=== PATIENT | female | born 1950 | race Caucasian/White ===

== ENCOUNTER 2021-09-23 23:23 | Inpatient (IN) ==
[2021-09-24] MEDS ORDERED: 0.9 % Sodium Chloride 1,000 ML IVC ONE (00:13)
[2021-09-24] MEDS ORDERED: Acetaminophen IV 1,000 MG/100 ML BAG IVPB ONE (00:19)
[2021-09-24] MEDS ORDERED: cefTRIAXone 2,000 MG in 0.9 % Sodium Chloride Mini Bag 100 ML IVPB ONE (00:20)
[2021-09-24 00:25] LABS: Basophils % 0.2 %; Eosinophils # 0.4 K/mcL (0.0-0.6); Eosinophils % 2.5 %; Hematocrit 35.3 % (35.3-44.9); Hemoglobin 10.9 g/dL (11.5-15.4); Immature Granulocytes % 0.4 % (0-4); Lymphocytes # 1.5 K/mcL (0.6-4.6); Lymphocytes % 8.5 %; Mean Corpuscular HGB Conc 30.9 g/dL (31.6-35.5); Mean Corpuscular Hemoglobin 25.1 pg (28.0-33.3); Mean Corpuscular Volume 81.3 fL (83.0-100.0); Mean Platelet Volume 9.9 fL (9.4-12.4); Monocytes # 0.8 K/mcL (0.0-1.3); Monocytes % 4.7 %; Neutrophils # 14.3 K/mcL (1.6-8.9); Platelet Count 407 K/mcL (140-400); Red Blood Count 4.34 M/mcL (3.82-4.97); Red Cell Distribution Width 21.8 % (11.5-14.5); Segmented Neutrophils % 83.7 %; White Blood Count 17.1 K/mcL (4.3-11.1)
[2021-09-24 00:32] LABS: INR 1.1; Prothrombin Time 12.1 Seconds (9.4-12.1)
[2021-09-24 00:35] LABS: Activated Partial Thrombo Time 36.3 Seconds (26.0-36.0)
[2021-09-24 00:35] LABS: Bilirubin,Urine Negative (Negative); Blood,Urine Negative (Negative); Clarity,Urine Clear (Clear); Color,Urine Light-Yellow (Yellow); Glucose,Urine (UA) Normal (Normal); Ketones,Urine Negative (Negative); Leukocyte Esterase,Urine Moderate (Negative); Nitrite,Urine Negative (Negative); PH,Urine 6.5 pH Units (5.0-8.0); Protein,Urine Trace mg/dL (Neg-Trace); RBC,Urine 0-3 per hpf (0-3); Squamous Epithelial Cell,Urine Few per hpf (None-Few); Transitional Epi Cells,Urine Few per hpf (None-Few); Urobilinogen,Urine Normal (Normal); WBC,Urine 30-50 per hpf (0-3)
[2021-09-24] MEDS ORDERED: Azithromycin 500 MG in 0.9 % Sodium Chloride 250 ML IVPB ONE (00:50)
[2021-09-24 00:51] LABS: Alanine Aminotransferase 10 Units/L (7-52); Albumin/Globulin Ratio 1.1 (1.1-2.2); Alkaline Phosphatase 144 Units/L (34-104); Aspartate Amino Transferase 18 Units/L (13-39); BUN/Creatinine Ratio 13 (6-26); Bilirubin,Direct 0.1 mg/dL (0.0-0.2); Bilirubin,Indirect 0.2 mg/dL (0.0-1.0); Bilirubin,Total 0.3 mg/dL (0.3-1.0); Blood Urea Nitrogen 12 mg/dL (8-23); Calcium 9.7 mg/dL (8.6-10.3); Carbon Dioxide 18 mEq/L (23-29); Chloride 102 mEq/L (98-107); Globulin 3.8 g/dL (2.4-3.5); Glucose 155 mg/dL (70-105); Magnesium 1.5 mg/dL (1.6-2.6); Osmolality,Calculated 287 (280-300); Potassium 3.9 mEq/L (3.5-5.1); Sodium 137 mEq/L (136-145); Total Protein 7.8 g/dL (6.4-8.9); Troponin I < 0.03 ng/mL (< 0.04); eGFR For African Americans > 60 (> 60); eGFR For Non-African Americans 58 (> 60)
[2021-09-24] MEDS ORDERED: Albuterol 2.5 MG/3 ML NEBULIZER IH ONE (00:51)
[2021-09-24] MEDS ORDERED: Ondansetron 4 MG/2 ML VIAL IVP ONE (01:40)
[2021-09-24] MEDS ORDERED: 0.9 % Sodium Chloride 1,000 ML IV ONE (01:41)
[2021-09-24 02:44] LABS: Adenovirus Not Detected (Not Detect); Bordetella Pertussis Not Detected (Not Detect); Chlamydophila pneumoniae Not Detected (Not Detect); Coronavirus 229E Not Detected (Not Detect); Coronavirus HKU1 Not Detected (Not Detect); Coronavirus NL63 Not Detected (Not Detect); Coronavirus OC43 Not Detected (Not Detect); Human Metapneumovirus Not Detected (Not Detect); Human Rhinovirus/Enterovirus Not Detected (Not Detect); Influenza A Subtype 2009 H1 Not Detected (Not Detect); Influenza B Not Detected (Not Detect); Mycoplasma pneumoniae Not Detected (Not Detect); Parainfluenza Virus 1 Not Detected (Not Detect); Parainfluenza Virus 2 Not Detected (Not Detect); Parainfluenza Virus 3 Not Detected (Not Detect); Parainfluenza Virus 4 Not Detected (Not Detect); Respiratory Syncytial Virus Not Detected (Not Detect); SARS-CoV-2 Not Detected (Not Detect)
[2021-09-24] MEDS: Ketorolac 30 MG/ML VIAL IVP SCH ×2 (02:55→10:05)
[2021-09-24] MEDS ORDERED: 0.9 % Sodium Chloride 500 ML IV ONE (03:17)
[2021-09-24] MEDS ORDERED: Iopamidol - 370 500 ML MLS IVP ONE (03:19)
[2021-09-24] MEDS ORDERED: Melatonin 3 MG TABLET PO PRN (05:08)
[2021-09-24] MEDS ORDERED: Naloxone 0.4 MG/ML INJ IVP PRN (05:08)
[2021-09-24] MEDS ORDERED: Ondansetron 4 MG/2 ML VIAL IVP PRN (05:08)
[2021-09-24] MEDS ORDERED: Dextrose Gel 15 GM/37.5 ML TUBE PO PRN ×2 (06:10)
[2021-09-24] MEDS ORDERED: *HR* Dextrose 50 % in Water (Syg) 50 ML SYRINGE IVP PRN (06:10)
[2021-09-24] MEDS ORDERED: D5% in Water 1,000 ML IVC PRN (06:10)
[2021-09-24] MEDS: 0.9 % Sodium Chloride 1,000 ML IVC SCH ×2 (06:27→14:34)
[2021-09-24] MEDS: Insulin LISPRO 300 UNITS/3 ML VIAL SUBQ SCH ×4 (07:33→20:19)
[2021-09-24] MEDS: Acetaminophen 325 MG TABLET PO PRN ×2 (10:04→20:33)
[2021-09-24] MEDS ORDERED: Perflutren Lipid Microsphere 1.3 ML in 0.9 % Sodium Chloride 8.7 ML IVP PRN (11:16)
[2021-09-24] MEDS: *HR* Heparin 5,000 UNIT/ML VIAL SQ SCH ×2 (14:42→20:24)
[2021-09-24] MEDS ORDERED: *HR* HYDROcodone/Acet 5/325 mg TABLET PO PRN (15:33)
[2021-09-24] MEDS: clonazePAM 0.5 MG TABLET PO SCH (20:26)
[2021-09-24] MEDS ORDERED: cefTRIAXone 2,000 MG in 0.9 % Sodium Chloride 10 ML IVP ONE (23:59)
[2021-09-25] MEDS: cefTRIAXone 2,000 MG in 0.9 % Sodium Chloride 20 ML IVP SCH (00:11)
[2021-09-25] MEDS: Azithromycin 500 MG in D5% in Water 250 ML IVPB SCH (00:12)
[2021-09-25] MEDS ORDERED: cefTRIAXone 2,000 MG in 0.9 % Sodium Chloride 10 ML IVP SCH (02:00)
[2021-09-25 03:16] LABS: Basophils % 0.2 %; Eosinophils # 0.6 K/mcL (0.0-0.6); Eosinophils % 3.9 %; Immature Granulocytes % 0.5 % (0-4); Lymphocytes # 1.7 K/mcL (0.6-4.6); Lymphocytes % 11.1 %; Mean Corpuscular HGB Conc 29.6 g/dL (31.6-35.5); Mean Corpuscular Hemoglobin 25.2 pg (28.0-33.3); Mean Corpuscular Volume 84.9 fL (83.0-100.0); Mean Platelet Volume 10.4 fL (9.4-12.4); Monocytes # 0.8 K/mcL (0.0-1.3); Monocytes % 5.3 %; Neutrophils # 11.8 K/mcL (1.6-8.9); Platelet Count 266 K/mcL (140-400); Red Blood Count 3.18 M/mcL (3.82-4.97); Red Cell Distribution Width 22.1 % (11.5-14.5)
[2021-09-25 03:35] LABS: BUN/Creatinine Ratio 17 (6-26); Blood Urea Nitrogen 14 mg/dL (8-23); Calcium 8.7 mg/dL (8.6-10.3); Carbon Dioxide 23 mEq/L (23-29); Chloride 108 mEq/L (98-107); Glucose 106 mg/dL (70-105); Osmolality,Calculated 285 (280-300); Potassium 4.2 mEq/L (3.5-5.1); Sodium 137 mEq/L (136-145); eGFR For African Americans > 60 (> 60); eGFR For Non-African Americans > 60 (> 60)
[2021-09-25] MEDS: *HR* Heparin 5,000 UNIT/ML VIAL SQ SCH ×3 (04:47→19:54)
[2021-09-25] MEDS: Insulin LISPRO 300 UNITS/3 ML VIAL SUBQ SCH ×4 (07:44→19:49)
[2021-09-25] MEDS: Aspirin Enteric Coated 81 MG Tablet PO SCH (07:49)
[2021-09-25] MEDS: clonazePAM 0.5 MG TABLET PO SCH ×2 (07:49→19:54)
[2021-09-25] MEDS ORDERED: Lidocaine Viscous Oral Soln 15 ML SOLUTION MM PRN (10:45)
[2021-09-25] MEDS ORDERED: *HR* FentaNYL (PF) 100 MCG/2 ML VIAL IVP PRN (10:45)
[2021-09-25] MEDS ORDERED: 0.9 % Sodium Chloride 500 ML IVC ONE (10:46)
[2021-09-25] MEDS: *HR* Midazolam HCl 5 MG/5 ML VIAL IVP PRN ×2 (11:18→11:20)
[2021-09-25] MEDS ORDERED: Furosemide 20 MG/2 ML VIAL IVP ONE ×2 (14:33→16:44)
[2021-09-25] MEDS: Ipratropium/Albuterol Neb 3 ML IH PRN (17:50)
[2021-09-26] MEDS: *HR* HYDROcodone/Acet 5/325 mg TABLET PO PRN ×2 (00:20→23:29)
[2021-09-26] MEDS: Azithromycin 500 MG in D5% in Water 250 ML IVPB SCH (00:21)
[2021-09-26] MEDS: cefTRIAXone 2,000 MG in 0.9 % Sodium Chloride 20 ML IVP SCH ×2 (00:22→23:30)
[2021-09-26 02:27] LABS: Basophils % 0.3 %; Eosinophils # 0.3 K/mcL (0.0-0.6); Hematocrit 25.8 % (35.3-44.9); Hemoglobin 7.9 g/dL (11.5-15.4); Immature Granulocytes % 0.4 % (0-4); Lymphocytes # 1.8 K/mcL (0.6-4.6); Lymphocytes % 18.2 %; Mean Corpuscular HGB Conc 30.6 g/dL (31.6-35.5); Mean Corpuscular Hemoglobin 25.1 pg (28.0-33.3); Mean Corpuscular Volume 81.9 fL (83.0-100.0); Mean Platelet Volume 10.6 fL (9.4-12.4); Monocytes # 0.7 K/mcL (0.0-1.3); Monocytes % 6.7 %; Platelet Count 281 K/mcL (140-400); Red Blood Count 3.15 M/mcL (3.82-4.97); Red Cell Distribution Width 22.5 % (11.5-14.5); Segmented Neutrophils % 71.4 %; White Blood Count 9.8 K/mcL (4.3-11.1)
[2021-09-26 02:49] LABS: Alanine Aminotransferase 6 Units/L (7-52); Albumin 3.2 g/dL (3.5-5.7); Alkaline Phosphatase 120 Units/L (34-104); Aspartate Amino Transferase 12 Units/L (13-39); BUN/Creatinine Ratio 17 (6-26); Bilirubin,Total 0.4 mg/dL (0.3-1.0); Blood Urea Nitrogen 13 mg/dL (8-23); Calcium 8.7 mg/dL (8.6-10.3); Carbon Dioxide 26 mEq/L (23-29); Chloride 99 mEq/L (98-107); Globulin 3.3 g/dL (2.4-3.5); Glucose 159 mg/dL (70-105); Osmolality,Calculated 281 (280-300); Potassium 3.3 mEq/L (3.5-5.1); Sodium 134 mEq/L (136-145); Total Protein 6.5 g/dL (6.4-8.9); eGFR For African Americans > 60 (> 60); eGFR For Non-African Americans > 60 (> 60)
[2021-09-26] MEDS: *HR* Heparin 5,000 UNIT/ML VIAL SQ SCH ×3 (05:39→20:40)
[2021-09-26] MEDS: Insulin LISPRO 300 UNITS/3 ML VIAL SUBQ SCH ×4 (07:29→20:35)
[2021-09-26] MEDS: clonazePAM 0.5 MG TABLET PO SCH ×2 (07:43→20:40)
[2021-09-26] MEDS: Aspirin Enteric Coated 81 MG Tablet PO SCH (07:43)
[2021-09-26] MEDS ORDERED: Furosemide 40 MG/4 ML VIAL IVP SCH (09:00)
[2021-09-26] MEDS: Ipratropium/Albuterol Neb 3 ML IH PRN ×2 (16:06→23:51)
[2021-09-27] MEDS: *HR* Heparin 5,000 UNIT/ML VIAL SQ SCH ×3 (05:28→21:04)
[2021-09-27 05:32] LABS: Hematocrit 27.7 % (35.3-44.9); Hemoglobin 8.5 g/dL (11.5-15.4); Mean Corpuscular HGB Conc 30.7 g/dL (31.6-35.5); Mean Corpuscular Hemoglobin 25.1 pg (28.0-33.3); Mean Platelet Volume 10.4 fL (9.4-12.4); Platelet Count 313 K/mcL (140-400); Red Blood Count 3.38 M/mcL (3.82-4.97); Red Cell Distribution Width 21.8 % (11.5-14.5); White Blood Count 8.4 K/mcL (4.3-11.1)
[2021-09-27 05:56] LABS: BUN/Creatinine Ratio 14 (6-26); Blood Urea Nitrogen 11 mg/dL (8-23); Calcium 9.2 mg/dL (8.6-10.3); Carbon Dioxide 28 mEq/L (23-29); Chloride 102 mEq/L (98-107); Glucose 126 mg/dL (70-105); Osmolality,Calculated 285 (280-300); Potassium 3.9 mEq/L (3.5-5.1); Sodium 137 mEq/L (136-145); eGFR For African Americans > 60 (> 60); eGFR For Non-African Americans > 60 (> 60)
[2021-09-27 06:12] LABS: Ferritin 49 ng/mL (10-120)
[2021-09-27] MEDS: Insulin LISPRO 300 UNITS/3 ML VIAL SUBQ SCH ×4 (07:34→22:38)
[2021-09-27] MEDS: Ipratropium/Albuterol Neb 3 ML IH PRN (07:56)
[2021-09-27] MEDS: clonazePAM 0.5 MG TABLET PO SCH ×2 (08:29→21:04)
[2021-09-27] MEDS: Azithromycin 250 MG TABLET PO SCH (08:29)
[2021-09-27] MEDS: Aspirin Enteric Coated 81 MG Tablet PO SCH (08:29)
[2021-09-27] MEDS: *HR* HYDROcodone/Acet 5/325 mg TABLET PO PRN (23:21)
[2021-09-28] MEDS: cefTRIAXone 2,000 MG in 0.9 % Sodium Chloride 20 ML IVP SCH (00:04)
[2021-09-28 01:57] LABS: Hematocrit 28.1 % (35.3-44.9); Hemoglobin 8.6 g/dL (11.5-15.4); Mean Corpuscular HGB Conc 30.6 g/dL (31.6-35.5); Mean Corpuscular Hemoglobin 25.1 pg (28.0-33.3); Mean Corpuscular Volume 82.2 fL (83.0-100.0); Mean Platelet Volume 9.9 fL (9.4-12.4); Platelet Count 313 K/mcL (140-400); Red Blood Count 3.42 M/mcL (3.82-4.97); Red Cell Distribution Width 21.7 % (11.5-14.5); White Blood Count 9.5 K/mcL (4.3-11.1)
[2021-09-28 02:04] LABS: INR 1.1; Prothrombin Time 12.4 Seconds (9.4-12.1)
[2021-09-28 02:12] LABS: BUN/Creatinine Ratio 14 (6-26); Blood Urea Nitrogen 10 mg/dL (8-23); Calcium 9.4 mg/dL (8.6-10.3); Carbon Dioxide 28 mEq/L (23-29); Chloride 101 mEq/L (98-107); Glucose 95 mg/dL (70-105); Osmolality,Calculated 285 (280-300); Sodium 138 mEq/L (136-145); eGFR For African Americans > 60 (> 60); eGFR For Non-African Americans > 60 (> 60)
[2021-09-28] MEDS: *HR* Heparin 5,000 UNIT/ML VIAL SQ SCH ×3 (04:30→21:24)
[2021-09-28] MEDS: Insulin LISPRO 300 UNITS/3 ML VIAL SUBQ SCH ×4 (07:37→23:52)
[2021-09-28] MEDS: Aspirin Enteric Coated 81 MG Tablet PO SCH (08:50)
[2021-09-28] MEDS: clonazePAM 0.5 MG TABLET PO SCH ×2 (08:50→21:25)
[2021-09-28] MEDS: Azithromycin 250 MG TABLET PO SCH (08:50)
[2021-09-28] MEDS ORDERED: Cyanocobalamin (B-12) 1,000 MCG/ML VIAL IM SCH (09:00)
[2021-09-28] MEDS ORDERED: *HR* FentaNYL (PF) 100 MCG/2 ML VIAL ONE (14:16)
[2021-09-28] MEDS ORDERED: Heparin 1,000 UNITS/500 mL 500 ML ONE (14:17)
[2021-09-28] MEDS ORDERED: *HR* Midazolam HCl 2 MG/2 ML VIAL ONE (14:17)
[2021-09-28] MEDS ORDERED: Iopamidol - 370 200 ML INFUS..BTL ONE (14:17)
[2021-09-28] MEDS ORDERED: *HR* Heparin 10,000 UNIT/10 ML VIAL ONE (14:17)
[2021-09-28] MEDS ORDERED: 0.9 % Sodium Chloride 2,000 ML ONE (14:18)
[2021-09-28] MEDS ORDERED: Nitroglycerin 1,000 MCG/5 ML VIAL IV ONE (14:18)
[2021-09-28 19:17] LABS: Basophils # 0.1 K/mcL (0.0-0.2); Basophils % 0.5 %; Eosinophils # 0.9 K/mcL (0.0-0.6); Eosinophils % 9.1 %; Hematocrit 29.5 % (35.3-44.9); INR 1.1; Immature Granulocytes % 0.9 % (0-4); Lymphocytes # 2.5 K/mcL (0.6-4.6); Lymphocytes % 25.2 %; Mean Corpuscular HGB Conc 30.5 g/dL (31.6-35.5); Mean Corpuscular Hemoglobin 25.4 pg (28.0-33.3); Mean Corpuscular Volume 83.1 fL (83.0-100.0); Mean Platelet Volume 9.8 fL (9.4-12.4); Monocytes # 0.8 K/mcL (0.0-1.3); Monocytes % 8.3 %; Neutrophils # 5.5 K/mcL (1.6-8.9); Platelet Count 347 K/mcL (140-400); Prothrombin Time 12.8 Seconds (9.4-12.1); Red Blood Count 3.55 M/mcL (3.82-4.97); Red Cell Distribution Width 21.2 % (11.5-14.5); White Blood Count 9.9 K/mcL (4.3-11.1)
[2021-09-28 19:22] LABS: Activated Partial Thrombo Time 60.5 Seconds (26.0-36.0)
[2021-09-28 19:38] LABS: BUN/Creatinine Ratio 13 (6-26); Blood Urea Nitrogen 9 mg/dL (8-23); Calcium 9.4 mg/dL (8.6-10.3); Carbon Dioxide 28 mEq/L (23-29); Chloride 102 mEq/L (98-107); Chol/HDL Ratio 4.3 (0-4.9); Cholesterol 124 mg/dL (< 200); Glucose 97 mg/dL (70-105); HDL Cholesterol 29 mg/dL (40-59); LDL Cholesterol,Calculated 59 mg/dL (< 100); Osmolality,Calculated 283 (280-300); Potassium 4.2 mEq/L (3.5-5.1); Sodium 137 mEq/L (136-145); Triglycerides 178 mg/dL (< 150); eGFR For African Americans > 60 (> 60); eGFR For Non-African Americans > 60 (> 60)
[2021-09-28 20:13] LABS: Estimated Average Glucose 137 mg/dl; Hemoglobin A1C 6.4 %
[2021-09-28] MEDS: Chlorhexidine Rinse 15 ML MOUTHWASH MM SCH (21:26)
[2021-09-29] MEDS: cefTRIAXone 2,000 MG in 0.9 % Sodium Chloride 20 ML IVP SCH (02:25)
[2021-09-29 02:33] LABS: ABG Base Excess 0 mEq/L (-2 to 3); ABG HCO3 23 mEq/L (21-27); ABG Oxygen Saturation 97 % (95-98); ABG PCO2 31 mmHg (35-45); ABG PH 7.48 pH Units (7.32-7.45); ABG PO2 78 mmHg (85-104); ABG TCO2 24 mEq/L (20-26)
[2021-09-29] MEDS ORDERED: Iopamidol - 370 500 ML MLS IVP ONE (02:34)
[2021-09-29 03:07] LABS: Basophils % 0.4 %; Eosinophils # 0.9 K/mcL (0.0-0.6); Hematocrit 25.8 % (35.3-44.9); Immature Granulocytes % 1.1 % (0-4); Lymphocytes # 2.3 K/mcL (0.6-4.6); Lymphocytes % 23.6 %; Mean Corpuscular Hemoglobin 25.7 pg (28.0-33.3); Mean Platelet Volume 10.2 fL (9.4-12.4); Monocytes # 1.1 K/mcL (0.0-1.3); Monocytes % 11.1 %; Neutrophils # 5.2 K/mcL (1.6-8.9); Platelet Count 322 K/mcL (140-400); Red Blood Count 3.11 M/mcL (3.82-4.97); Red Cell Distribution Width 21.5 % (11.5-14.5); Segmented Neutrophils % 54.8 %; White Blood Count 9.5 K/mcL (4.3-11.1)
[2021-09-29 03:14] LABS: INR 1.2; Prothrombin Time 13.3 Seconds (9.4-12.1)
[2021-09-29 03:30] LABS: Alanine Aminotransferase 7 Units/L (7-52); Albumin 3.1 g/dL (3.5-5.7); Alkaline Phosphatase 129 Units/L (34-104); Aspartate Amino Transferase 12 Units/L (13-39); BUN/Creatinine Ratio 14 (6-26); Bilirubin,Direct 0.1 mg/dL (0.0-0.2); Bilirubin,Indirect 0.2 mg/dL (0.0-1.0); Bilirubin,Total 0.3 mg/dL (0.3-1.0); Blood Urea Nitrogen 10 mg/dL (8-23); Calcium 8.9 mg/dL (8.6-10.3); Carbon Dioxide 26 mEq/L (23-29); Chloride 100 mEq/L (98-107); Globulin 3.2 g/dL (2.4-3.5); Glucose 125 mg/dL (70-105); Magnesium 1.7 mg/dL (1.6-2.6); Osmolality,Calculated 279 (280-300); Phosphorous 4.2 mg/dL (2.7-4.5); Potassium 3.9 mEq/L (3.5-5.1); Sodium 134 mEq/L (136-145); Total Protein 6.3 g/dL (6.4-8.9); eGFR For African Americans > 60 (> 60); eGFR For Non-African Americans > 60 (> 60)
[2021-09-29 05:17] LABS: Folate 16.7 ng/mL (3.0-16.0)
[2021-09-29 05:38] LABS: Alanine Aminotransferase 7 Units/L (7-52); Albumin 3.2 g/dL (3.5-5.7); Albumin/Globulin Ratio 0.9 (1.1-2.2); Alkaline Phosphatase 139 Units/L (34-104); Aspartate Amino Transferase 14 Units/L (13-39); BUN/Creatinine Ratio 13 (6-26); Bilirubin,Total 0.2 mg/dL (0.3-1.0); Blood Urea Nitrogen 10 mg/dL (8-23); Calcium 9.3 mg/dL (8.6-10.3); Carbon Dioxide 25 mEq/L (23-29); Chloride 101 mEq/L (98-107); Chol/HDL Ratio 4.8 (0-4.9); Cholesterol 114 mg/dL (< 200); Globulin 3.6 g/dL (2.4-3.5); Glucose 118 mg/dL (70-105); HDL Cholesterol 24 mg/dL (40-59); LDL Cholesterol,Calculated 53 mg/dL (< 100); LDL Cholesterol,Direct 66 mg/dL (75-193); Osmolality,Calculated 280 (280-300); Potassium 4.2 mEq/L (3.5-5.1); Sodium 135 mEq/L (136-145); Total Protein 6.8 g/dL (6.4-8.9); Triglycerides 183 mg/dL (< 150); eGFR For African Americans > 60 (> 60); eGFR For Non-African Americans > 60 (> 60)
[2021-09-29 05:39] LABS: Troponin I < 0.03 ng/mL (< 0.04)
[2021-09-29 05:56] LABS: Estimated Average Glucose 137 mg/dl; Hemoglobin A1C 6.4 %
[2021-09-29] MEDS ORDERED: Vancomycin 1,250 MG/262.5 ML IV.SOLN IVPB ONE (06:00)
[2021-09-29] MEDS ORDERED: Clindamycin 900 MG/50 ML 900 MG/50 ML IV.SOLN IVPB ONE (06:00)
[2021-09-29] MEDS ORDERED: Aspirin 81 MG TAB.CHEW PO ONE (06:00)
[2021-09-29] MEDS ORDERED: Heparin 1,000 UNITS/500 mL 500 ML ONE (08:01)
[2021-09-29] MEDS ORDERED: Papaverine 60 MG/2 ML VIAL IVP ONE (08:01)
[2021-09-29] MEDS ORDERED: Iopamidol - 300 50 ML VIAL ONE (08:01)
[2021-09-29] MEDS ORDERED: NiCARdipine 2.5 MG/10 ML Syringe IVPB ONE (08:05)
[2021-09-29] MEDS ORDERED: DOBUTamine 1,000 MG/250 ML BAG ONE (08:05)
[2021-09-29] MEDS ORDERED: *HR* FentaNYL (PF) 250 MCG/5 ML VIAL ONE (08:07)
[2021-09-29] MEDS ORDERED: *HR* Propofol 200 MG/20 ML VIAL IVP ONE (08:08)
[2021-09-29] MEDS ORDERED: *HR* Midazolam HCl 5 MG/5 ML VIAL IVP ONE (08:08)
[2021-09-29] MEDS ORDERED: Famotidine 20 MG/2 ML VIAL ONE (08:10)
[2021-09-29] MEDS ORDERED: *HR* Magnesium Sulfate 1 GM/2 ML VIAL ONE (08:10)
[2021-09-29] MEDS ORDERED: *HR* Rocuronium Bromide 50 MG/5 ML VIAL ONE ×2 (08:10→11:12)
[2021-09-29] MEDS ORDERED: *HR* Dextrose 50 % in Water (Syg) 50 ML SYRINGE IVP PRN (08:11)
[2021-09-29] MEDS ORDERED: Ondansetron 4 MG/2 ML VIAL IVP PRN (08:11)
[2021-09-29] MEDS ORDERED: *HR* OxyCODONE/APAP 5/325 TABLET PO PRN (08:11)
[2021-09-29] MEDS ORDERED: Insulin Regular, Human 100 UNIT/ML IV PRN (08:11)
[2021-09-29] MEDS ORDERED: Potassium Chloride 40 MEQ/200 ML BAG IVPB PRN (08:11)
[2021-09-29] MEDS ORDERED: Calcium Gluconate 1gm/50mL 1 GM/50 ML BAG IVPB PRN (08:11)
[2021-09-29] MEDS ORDERED: Lidocaine 2% Syringe 100 MG/5 ML ONE (08:14)
[2021-09-29] MEDS: Insulin LISPRO 300 UNITS/3 ML VIAL SUBQ SCH (08:16)
[2021-09-29] MEDS: Chlorhexidine Rinse 15 ML MOUTHWASH MM SCH ×3 (08:16→20:36)
[2021-09-29] MEDS: Aspirin Enteric Coated 81 MG Tablet PO SCH (08:17)
[2021-09-29] MEDS: clonazePAM 0.5 MG TABLET PO SCH ×2 (08:17→20:48)
[2021-09-29] MEDS: Azithromycin 250 MG TABLET PO SCH (08:17)
[2021-09-29] MEDS ORDERED: Furosemide 40 MG/4 ML VIAL IVP SCH (09:00)
[2021-09-29 09:50] LABS: ABG Base Excess 1 mEq/L (-2 to 3); ABG Chloride 102 mEq/L (98-107); ABG Glucose 99 mg/dL (60-95); ABG HCO3 25 mEq/L (21-27); ABG Ionized Calcium 1.25 mmol/L (1.15-1.35); ABG Oxygen Saturation 100 % (95-98); ABG PCO2 39 mmHg (35-45); ABG PH 7.42 pH Units (7.32-7.45); ABG PO2 326 mmHg (85-104); ABG TCO2 26 mEq/L (20-26)
[2021-09-29 11:06] LABS: ABG Base Excess -1 mEq/L (-2 to 3); ABG Chloride 104 mEq/L (98-107); ABG Glucose 96 mg/dL (60-95); ABG HCO3 22 mEq/L (21-27); ABG Ionized Calcium 1.16 mmol/L (1.15-1.35); ABG Oxygen Saturation 100 % (95-98); ABG PCO2 30 mmHg (35-45); ABG PH 7.47 pH Units (7.32-7.45); ABG PO2 223 mmHg (85-104); ABG TCO2 23 mEq/L (20-26)
[2021-09-29 11:19] LABS: ABG Base Excess 0 mEq/L (-2 to 3); ABG Chloride 102 mEq/L (98-107); ABG Glucose 105 mg/dL (60-95); ABG HCO3 22 mEq/L (21-27); ABG Ionized Calcium 0.91 mmol/L (1.15-1.35); ABG Oxygen Saturation 100 % (95-98); ABG PCO2 24 mmHg (35-45); ABG PH 7.57 pH Units (7.32-7.45); ABG PO2 616 mmHg (85-104); ABG TCO2 23 mEq/L (20-26)
[2021-09-29 12:30] LABS: Basophils # 0.1 K/mcL (0.0-0.2); Basophils % 0.5 %; Eosinophils # 0.9 K/mcL (0.0-0.6); Eosinophils % 10.2 %; Immature Granulocytes % 0.7 % (0-4); Lymphocytes # 2.2 K/mcL (0.6-4.6); Lymphocytes % 24.3 %; Monocytes # 0.9 K/mcL (0.0-1.3); Monocytes % 10.2 %; Segmented Neutrophils % 54.1 %
[2021-09-29 12:39] LABS: ABG Base Excess -2 mEq/L (-2 to 3); ABG Chloride 101 mEq/L (98-107); ABG Glucose 171 mg/dL (60-95); ABG HCO3 29 mEq/L (21-27); ABG Ionized Calcium 1.13 mmol/L (1.15-1.35); ABG Oxygen Saturation 100 % (95-98); ABG PCO2 100 mmHg (35-45); ABG PH 7.06 pH Units (7.32-7.45); ABG PO2 604 mmHg (85-104); ABG TCO2 32 mEq/L (20-26)
[2021-09-29] MEDS ORDERED: Calcium Gluconate 1,000 MG/10 ML VIAL ONE (12:46)
[2021-09-29] MEDS ORDERED: Protamine Sulfate 250 MG/25 ML VIAL IVP ONE (12:46)
[2021-09-29 13:06] LABS: ABG Base Excess -3 mEq/L (-2 to 3); ABG Chloride 101 mEq/L (98-107); ABG Glucose 193 mg/dL (60-95); ABG HCO3 21 mEq/L (21-27); ABG Ionized Calcium 0.96 mmol/L (1.15-1.35); ABG Oxygen Saturation 100 % (95-98); ABG PCO2 33 mmHg (35-45); ABG PH 7.41 pH Units (7.32-7.45); ABG PO2 586 mmHg (85-104); ABG TCO2 22 mEq/L (20-26)
[2021-09-29 13:20] LABS: ABG Base Excess -6 mEq/L (-2 to 3); ABG Chloride 102 mEq/L (98-107); ABG Glucose 246 mg/dL (60-95); ABG HCO3 20 mEq/L (21-27); ABG Ionized Calcium 0.99 mmol/L (1.15-1.35); ABG Oxygen Saturation 100 % (95-98); ABG PCO2 41 mmHg (35-45); ABG PO2 545 mmHg (85-104); ABG TCO2 21 mEq/L (20-26)
[2021-09-29] MEDS ORDERED: Furosemide 40 MG/4 ML VIAL ONE (13:45)
[2021-09-29 14:03] LABS: ABG Base Excess -8 mEq/L (-2 to 3); ABG Chloride 105 mEq/L (98-107); ABG Glucose 211 mg/dL (60-95); ABG HCO3 18 mEq/L (21-27); ABG Oxygen Saturation 96 % (95-98); ABG PCO2 37 mmHg (35-45); ABG PH 7.29 pH Units (7.32-7.45); ABG PO2 93 mmHg (85-104); ABG TCO2 19 mEq/L (20-26)
[2021-09-29] MEDS: DOBUTamine 1,000 MG/250 ML BAG IVC SCH (14:31)
[2021-09-29 14:42] LABS: ABG Base Excess -4 mEq/L (-2 to 3); ABG HCO3 22 mEq/L (21-27); ABG Oxygen Saturation 95 % (95-98); ABG PCO2 45 mmHg (35-45); ABG PO2 81 mmHg (85-104); ABG TCO2 23 mEq/L (20-26); Blood Gas Modality ASSIST CONTROL; Blood Gas VT 500 cc
[2021-09-29 14:47] LABS: Basophils # 0.1 K/mcL (0.0-0.2); Basophils % 0.4 %; Eosinophils # 0.3 K/mcL (0.0-0.6); Eosinophils % 1.5 %; Hematocrit 23.9 % (35.3-44.9); Hemoglobin 7.6 g/dL (11.5-15.4); Immature Granulocytes % 3.3 % (0-4); Lymphocytes % 8.6 %; Mean Corpuscular HGB Conc 31.8 g/dL (31.6-35.5); Mean Corpuscular Hemoglobin 27.2 pg (28.0-33.3); Mean Corpuscular Volume 85.7 fL (83.0-100.0); Mean Platelet Volume 9.3 fL (9.4-12.4); Monocytes % 4.2 %; Neutrophils # 18.7 K/mcL (1.6-8.9); Platelet Count 178 K/mcL (140-400); Red Blood Count 2.79 M/mcL (3.82-4.97); Red Cell Distribution Width 18.4 % (11.5-14.5)
[2021-09-29 14:49] LABS: % Iron Saturation 15 % (15-50); Iron 52 mcg/dL (50-170); Magnesium 1.9 mg/dL (1.6-2.6); Transferrin 253 mg/dL (203-362)
[2021-09-29 14:51] LABS: White Blood Count 22.8 K/mcL (4.3-11.1)
[2021-09-29 14:55] LABS: INR 1.4; Prothrombin Time 15.8 Seconds (9.4-12.1)
[2021-09-29 15:07] LABS: BUN/Creatinine Ratio 14 (6-26); Blood Urea Nitrogen 10 mg/dL (8-23); Calcium 8.2 mg/dL (8.6-10.3); Carbon Dioxide 23 mEq/L (23-29); Chloride 103 mEq/L (98-107); Glucose 215 mg/dL (70-105); Magnesium 2.6 mg/dL (1.6-2.6); Osmolality,Calculated 300 (280-300); Potassium 4.1 mEq/L (3.5-5.1); Sodium 142 mEq/L (136-145); eGFR For African Americans > 60 (> 60); eGFR For Non-African Americans > 60 (> 60)
[2021-09-29] MEDS ORDERED: *HR* Phenylephrine 10 MG/ML VIAL IVC ONE (15:14)
[2021-09-29] MEDS ORDERED: *HR* Magnesium Sulfate 2 GM/50 ML PIGGYBACK IVPB ONE (15:14)
[2021-09-29] MEDS ORDERED: Heparin 1,000 UNITS/500 mL IV.SOLN IR ONE (15:14)
[2021-09-29] MEDS ORDERED: Tranexamic Acid 1,000 MG/10 ML VIAL IR ONE (15:14)
[2021-09-29] MEDS ORDERED: *HR* Heparin 10,000 UNIT/10 ML VIAL IR ONE (15:14)
[2021-09-29] MEDS ORDERED: Albumin Human 25% 25 GM/100 ML IV.SOLN IVPB ONE (15:14)
[2021-09-29] MEDS ORDERED: Mannitol 25% vial 12.5 GM/50 ML VIAL IVPB ONE (15:14)
[2021-09-29] MEDS: Pantoprazole 40 MG VIAL IVP SCH (15:25)
[2021-09-29] MEDS: niCARdipine 20 MG/200 ML MLS IVC SCH ×3 (15:30→21:17)
[2021-09-29] MEDS: Clindamycin 900 MG/50 ML 900 MG/50 ML IV.SOLN IVPB SCH (16:30)
[2021-09-29] MEDS: *HR* FentaNYL (PF) 100 MCG/2 ML VIAL IVP PRN ×2 (16:58→21:24)
[2021-09-29] MEDS: Norepinephrine 4 MG/254 ML IV.SOLN IVC SCH (17:34)
[2021-09-29] MEDS ORDERED: 0.9 % Sodium Chloride 250 ML ONE ×2 (19:14→22:36)
[2021-09-29] MEDS: Furosemide 240 MG in 0.9 % Sodium Chloride 96 ML IVC SCH (19:29)
[2021-09-29 20:24] LABS: ABG Base Excess -1 mEq/L (-2 to 3); ABG HCO3 25 mEq/L (21-27); ABG Oxygen Saturation 96 % (95-98); ABG PCO2 44 mmHg (35-45); ABG PH 7.36 pH Units (7.32-7.45); ABG PO2 84 mmHg (85-104); ABG TCO2 26 mEq/L (20-26); Blood Gas VT 500 cc
[2021-09-29] MEDS: Albumin Human 5% 12.5 GM/250 ML IV.SOLN IVPB PRN ×2 (20:35→21:33)
[2021-09-29] MEDS: Dexmedetomidine HCl 400 MCG/100 ML MLS IVC SCH (21:24)
[2021-09-29 23:49] LABS: ABG Base Excess 3 mEq/L (-2 to 3); ABG HCO3 28 mEq/L (21-27); ABG Oxygen Saturation 98 % (95-98); ABG PCO2 41 mmHg (35-45); ABG PH 7.44 pH Units (7.32-7.45); ABG PO2 100 mmHg (85-104); ABG TCO2 29 mEq/L (20-26); Blood Gas VT 500 cc
[2021-09-30] MEDS: niCARdipine 20 MG/200 ML MLS IVC SCH ×7 (00:05→23:04)
[2021-09-30] MEDS: Clindamycin 900 MG/50 ML 900 MG/50 ML IV.SOLN IVPB SCH ×4 (00:11→23:03)
[2021-09-30] MEDS: cefTRIAXone 2,000 MG in 0.9 % Sodium Chloride 20 ML IVP SCH (00:52)
[2021-09-30] MEDS: *HR* FentaNYL (PF) 100 MCG/2 ML VIAL IVP PRN ×3 (00:55→05:20)
[2021-09-30] MEDS: Albumin Human 5% 12.5 GM/250 ML IV.SOLN IVPB PRN (02:20)
[2021-09-30 02:49] LABS: BUN/Creatinine Ratio 15 (6-26); Blood Urea Nitrogen 14 mg/dL (8-23); Calcium 8.2 mg/dL (8.6-10.3); Carbon Dioxide 29 mEq/L (23-29); Chloride 103 mEq/L (98-107); Glucose 147 mg/dL (70-105); Magnesium 2.1 mg/dL (1.6-2.6); Osmolality,Calculated 299 (280-300); Potassium 3.6 mEq/L (3.5-5.1); Sodium 143 mEq/L (136-145); eGFR For African Americans > 60 (> 60); eGFR For Non-African Americans 59 (> 60)
[2021-09-30] MEDS: Potassium Chloride 40 MEQ/200 ML BAG IVPB PRN ×3 (03:17→18:27)
[2021-09-30] MEDS: Norepinephrine 4 MG/254 ML IV.SOLN IVC SCH ×2 (03:21→17:06)
[2021-09-30 03:42] LABS: Basophils % 0.2 %; Hematocrit 36.6 % (35.3-44.9); Immature Granulocytes % 1.7 % (0-4); Lymphocytes # 0.7 K/mcL (0.6-4.6); Lymphocytes % 5.1 %; Mean Corpuscular HGB Conc 33.1 g/dL (31.6-35.5); Mean Corpuscular Hemoglobin 27.1 pg (28.0-33.3); Mean Corpuscular Volume 81.9 fL (83.0-100.0); Mean Platelet Volume 9.9 fL (9.4-12.4); Monocytes # 1.5 K/mcL (0.0-1.3); Monocytes % 9.9 %; Neutrophils # 12.1 K/mcL (1.6-8.9); Nucleated Red Blood Cells 0.3 /100 WBC (0); Platelet Count 176 K/mcL (140-400); Red Blood Count 4.47 M/mcL (3.82-4.97); Red Cell Distribution Width 16.7 % (11.5-14.5); Segmented Neutrophils % 83.1 %; White Blood Count 14.6 K/mcL (4.3-11.1)
[2021-09-30 03:44] LABS: INR 1.3; Prothrombin Time 14.5 Seconds (9.4-12.1)
[2021-09-30 03:45] LABS: Hemoglobin 12.1 g/dL (11.5-15.4)
[2021-09-30 03:46] LABS: Activated Partial Thrombo Time 27.6 Seconds (26.0-36.0)
[2021-09-30 04:19] LABS: ABG Base Excess 3 mEq/L (-2 to 3); ABG HCO3 27 mEq/L (21-27); ABG Oxygen Saturation 97 % (95-98); ABG PCO2 38 mmHg (35-45); ABG PH 7.46 pH Units (7.32-7.45); ABG PO2 90 mmHg (85-104); ABG TCO2 28 mEq/L (20-26); Blood Gas VT 500 cc
[2021-09-30] MEDS: *HR* Enoxaparin 40 MG/0.4 ML SYRINGE SQ SCH (06:11)
[2021-09-30] MEDS: Pantoprazole 40 MG VIAL IVP SCH (07:18)
[2021-09-30] MEDS: clonazePAM 0.5 MG TABLET PO SCH ×2 (07:19→20:14)
[2021-09-30] MEDS: Chlorhexidine Rinse 15 ML MOUTHWASH MM SCH ×2 (07:19→20:37)
[2021-09-30] MEDS ORDERED: Heparin 15,000 UNIT in 0.9 % Sodium Chloride 500 ML IV ONE (08:00)
[2021-09-30] MEDS ORDERED: del Nido Cardioplegia Solution PF ONE ×2 (08:00)
[2021-09-30] MEDS ORDERED: Buckersberg's Blood Cardioplegia PF ONE (08:00)
[2021-09-30] MEDS ORDERED: Norepinephrine 4 MG in 0.9 % Sodium Chloride 250 ML IVC PRN (08:00)
[2021-09-30] MEDS: DOBUTamine 1,000 MG/250 ML BAG IVC SCH (08:24)
[2021-09-30] MEDS: Aspirin 81 MG TAB.CHEW PO SCH (09:15)
[2021-09-30] MEDS: Dexmedetomidine HCl 400 MCG/100 ML MLS IVC SCH ×2 (09:22→23:10)
[2021-09-30 09:43] LABS: Bilirubin,Urine Negative (Negative); Blood,Urine Negative (Negative); Clarity,Urine Clear (Clear); Color,Urine Light-Yellow (Yellow); Glucose,Urine (UA) Normal (Normal); Ketones,Urine Negative (Negative); Leukocyte Esterase,Urine Negative (Negative); Nitrite,Urine Negative (Negative); PH,Urine 5.5 pH Units (5.0-8.0); Protein,Urine Negative (Neg-Trace); Specific Gravity,Urine 1.017 (1.010-1.025); Urobilinogen,Urine Normal (Normal)
[2021-09-30 09:52] LABS: ABG Base Excess 4 mEq/L (-2 to 3); ABG HCO3 27 mEq/L (21-27); ABG Oxygen Saturation 98 % (95-98); ABG PCO2 38 mmHg (35-45); ABG PH 7.46 pH Units (7.32-7.45); ABG PO2 98 mmHg (85-104); ABG TCO2 29 mEq/L (20-26); Blood Gas Pressure Support 12 cm H2O
[2021-09-30] MEDS ORDERED: Artificial Tears SOLN 15 ML BOTTLE BOTH EYES PRN (10:57)
[2021-09-30] MEDS: Artificial Tears SOLN 15 ML BOTTLE BOTH EYES SCH ×2 (11:25→15:51)
[2021-09-30] MEDS: Ketorolac 30 MG/ML VIAL IVP SCH ×3 (11:46→23:03)
[2021-09-30] MEDS: Albumin 25% 25gram/100mL 25 GM/100 ML IV.SOLN IVPB SCH ×3 (11:47→23:02)
[2021-09-30] MEDS ORDERED: Acetaminophen IV 1,000 MG/100 ML BAG IVPB PRN (14:00)
[2021-09-30] MEDS: Gabapentin 300 MG CAPSULE PO SCH ×2 (14:30→20:14)
[2021-09-30] MEDS ORDERED: Heparin 1,000 UNITS/500 mL 500 ML ONE (14:55)
[2021-09-30] MEDS ORDERED: D5% in Water 1,000 ML IVC PRN (16:35)
[2021-09-30] MEDS ORDERED: *HR* Dextrose 50 % in Water (Syg) 50 ML SYRINGE IVP PRN (16:35)
[2021-09-30] MEDS ORDERED: Dextrose Gel 15 GM/37.5 ML TUBE PO PRN ×2 (16:35)
[2021-09-30] MEDS: Insulin LISPRO 300 UNITS/3 ML VIAL SUBQ SCH ×2 (17:05→20:13)
[2021-09-30] MEDS: Furosemide 240 MG in 0.9 % Sodium Chloride 96 ML IVC SCH (17:51)
[2021-09-30 23:34] LABS: ABG Base Excess 2 mEq/L (-2 to 3); ABG HCO3 25 mEq/L (21-27); ABG Oxygen Saturation 96 % (95-98); ABG PCO2 32 mmHg (35-45); ABG PO2 70 mmHg (85-104); ABG TCO2 26 mEq/L (20-26)
[2021-10-01] MEDS ORDERED: Morphine Sulfate 2 MG/ML SYRINGE IVP ONE (00:20)
[2021-10-01] MEDS: cefTRIAXone 2,000 MG in 0.9 % Sodium Chloride 20 ML IVP SCH (00:32)
[2021-10-01 00:35] LABS: Basophils % 0.1 %; Hematocrit 32.9 % (35.3-44.9); Hemoglobin 10.7 g/dL (11.5-15.4); Immature Granulocytes % 0.7 % (0-4); Lymphocytes # 1.2 K/mcL (0.6-4.6); Lymphocytes % 8.9 %; Mean Corpuscular HGB Conc 32.5 g/dL (31.6-35.5); Mean Corpuscular Hemoglobin 27.4 pg (28.0-33.3); Mean Corpuscular Volume 84.4 fL (83.0-100.0); Mean Platelet Volume 10.9 fL (9.4-12.4); Monocytes % 14.1 %; Neutrophils # 10.5 K/mcL (1.6-8.9); Nucleated Red Blood Cells 0.4 /100 WBC (0); Platelet Count 146 K/mcL (140-400); Red Cell Distribution Width 17.7 % (11.5-14.5); Segmented Neutrophils % 76.2 %; White Blood Count 13.9 K/mcL (4.3-11.1)
[2021-10-01] MEDS: Insulin LISPRO 300 UNITS/3 ML VIAL SUBQ SCH ×6 (00:39→20:34)
[2021-10-01 00:48] LABS: Calcium 8.6 mg/dL (8.6-10.3); Potassium 3.9 mEq/L (3.5-5.1)
[2021-10-01] MEDS: niCARdipine 20 MG/200 ML MLS IVC SCH ×5 (00:51→20:33)
[2021-10-01 01:15] LABS: ABG Base Excess -1 mEq/L (-2 to 3); ABG HCO3 24 mEq/L (21-27); ABG Oxygen Saturation 94 % (95-98); ABG PCO2 39 mmHg (35-45); ABG PO2 70 mmHg (85-104); ABG TCO2 25 mEq/L (20-26)
[2021-10-01] MEDS: Norepinephrine 4 MG/254 ML IV.SOLN IVC SCH ×2 (02:00→09:27)
[2021-10-01] MEDS: Potassium Chloride 40 MEQ/200 ML BAG IVPB PRN (02:58)
[2021-10-01] MEDS: DOBUTamine 1,000 MG/250 ML BAG IVC SCH ×2 (02:58→12:10)
[2021-10-01] MEDS: Albumin 25% 25gram/100mL 25 GM/100 ML IV.SOLN IVPB SCH ×3 (04:27→17:47)
[2021-10-01] MEDS: *HR* Enoxaparin 40 MG/0.4 ML SYRINGE SQ SCH (04:28)
[2021-10-01] MEDS: Ketorolac 30 MG/ML VIAL IVP SCH (04:28)
[2021-10-01] MEDS: Clindamycin 900 MG/50 ML 900 MG/50 ML IV.SOLN IVPB SCH (07:47)
[2021-10-01] MEDS: Chlorhexidine Rinse 15 ML MOUTHWASH MM SCH ×2 (07:48→20:34)
[2021-10-01] MEDS: Pantoprazole 40 MG VIAL IVP SCH (07:48)
[2021-10-01] MEDS: Aspirin 81 MG TAB.CHEW PO SCH (07:49)
[2021-10-01] MEDS: Gabapentin 300 MG CAPSULE PO SCH ×3 (07:49→19:31)
[2021-10-01] MEDS: clonazePAM 0.5 MG TABLET PO SCH ×2 (07:49→19:31)
[2021-10-01] MEDS ORDERED: Albumin Human 5% 12.5 GM/250 ML IV.SOLN IVPB ONE (09:27)
[2021-10-01 09:38] LABS: ABG Base Excess 1 mEq/L (-2 to 3); ABG HCO3 25 mEq/L (21-27); ABG Oxygen Saturation 99 % (95-98); ABG PCO2 36 mmHg (35-45); ABG PH 7.46 pH Units (7.32-7.45); ABG PO2 144 mmHg (85-104); ABG TCO2 26 mEq/L (20-26); Blood Gas Modality AVAPS; Blood Gas VT 400 cc
[2021-10-01] MEDS ORDERED: *HR* Succinylcholine 200 MG/10 ML VIAL IVP ONE (10:49)
[2021-10-01] MEDS ORDERED: *HR* Etomidate 20 MG/10 ML AMPUL IVP ONE (10:49)
[2021-10-01] MEDS ORDERED: *HR* Midazolam HCl 2 MG/2 ML VIAL IVP ONE (10:49)
[2021-10-01] MEDS: Morphine Sulfate 2 MG/ML SYRINGE IVP PRN ×4 (12:25→19:47)
[2021-10-01 15:13] LABS: Calcium 8.8 mg/dL (8.6-10.3); Magnesium 2.2 mg/dL (1.6-2.6); Potassium 3.9 mEq/L (3.5-5.1)
[2021-10-01] MEDS: *HR* LORazepam 2 MG/ML VIAL IVP PRN (16:54)
[2021-10-01 20:09] LABS: ABG Base Excess -1 mEq/L (-2 to 3); ABG HCO3 25 mEq/L (21-27); ABG Oxygen Saturation 93 % (95-98); ABG PCO2 45 mmHg (35-45); ABG PH 7.35 pH Units (7.32-7.45); ABG PO2 70 mmHg (85-104); ABG TCO2 26 mEq/L (20-26); Blood Gas VT 400 cc
[2021-10-01] MEDS ORDERED: Furosemide 40 MG/4 ML VIAL IVP ONE (20:26)
[2021-10-01] MEDS ORDERED: Morphine Sulfate 2 MG/ML SYRINGE IVP PRN (22:26)
[2021-10-01] MEDS ORDERED: Artificial Tears SOLN 15 ML BOTTLE BOTH EYES PRN (23:18)
[2021-10-02] MEDS: Artificial Tears SOLN 15 ML BOTTLE BOTH EYES SCH ×6 (00:31→20:12)
[2021-10-02] MEDS: cefTRIAXone 2,000 MG in 0.9 % Sodium Chloride 20 ML IVP SCH (00:31)
[2021-10-02] MEDS: Albumin 25% 25gram/100mL 25 GM/100 ML IV.SOLN IVPB SCH ×5 (00:31→23:06)
[2021-10-02] MEDS: FentaNYL (PF) 1,000 MCG/100 ML IV.SOLN IVC SCH ×2 (00:31→20:09)
[2021-10-02] MEDS: niCARdipine 20 MG/200 ML MLS IVC SCH ×5 (00:32→18:19)
[2021-10-02] MEDS: Insulin LISPRO 300 UNITS/3 ML VIAL SUBQ SCH ×6 (00:38→20:30)
[2021-10-02 01:25] LABS: ABG Base Excess 1 mEq/L (-2 to 3); ABG HCO3 26 mEq/L (21-27); ABG Oxygen Saturation 95 % (95-98); ABG PCO2 40 mmHg (35-45); ABG PH 7.42 pH Units (7.32-7.45); ABG PO2 72 mmHg (85-104); ABG TCO2 27 mEq/L (20-26); Blood Gas VT 420 cc
[2021-10-02 04:18] LABS: ABG Base Excess 1 mEq/L (-2 to 3); ABG HCO3 25 mEq/L (21-27); ABG Oxygen Saturation 99 % (95-98); ABG PCO2 40 mmHg (35-45); ABG PH 7.41 pH Units (7.32-7.45); ABG PO2 116 mmHg (85-104); ABG TCO2 27 mEq/L (20-26); Blood Gas VT 420 cc
[2021-10-02 04:21] LABS: Basophils % 0.1 %; Lymphocytes # 1.1 K/mcL (0.6-4.6); Mean Corpuscular HGB Conc 31.3 g/dL (31.6-35.5); Mean Corpuscular Hemoglobin 27.5 pg (28.0-33.3); Mean Corpuscular Volume 87.9 fL (83.0-100.0); Mean Platelet Volume 10.8 fL (9.4-12.4); Monocytes # 1.3 K/mcL (0.0-1.3); Monocytes % 8.1 %; Neutrophils # 13.2 K/mcL (1.6-8.9); Nucleated Red Blood Cells 0.8 /100 WBC (0); Platelet Count 171 K/mcL (140-400); Red Blood Count 3.64 M/mcL (3.82-4.97); Red Cell Distribution Width 18.6 % (11.5-14.5); Segmented Neutrophils % 83.8 %; White Blood Count 15.8 K/mcL (4.3-11.1)
[2021-10-02 04:34] LABS: Albumin 4.9 g/dL (3.5-5.7); Albumin/Globulin Ratio 2.6 (1.1-2.2); Bilirubin,Total 0.7 mg/dL (0.3-1.0); Calcium 8.7 mg/dL (8.6-10.3); Globulin 1.9 g/dL (2.4-3.5); Magnesium 2.5 mg/dL (1.6-2.6); Potassium 4.4 mEq/L (3.5-5.1); Total Protein 6.8 g/dL (6.4-8.9)
[2021-10-02] MEDS: *HR* Enoxaparin 40 MG/0.4 ML SYRINGE SQ SCH (06:13)
[2021-10-02] MEDS: Aspirin 81 MG TAB.CHEW PO SCH (08:24)
[2021-10-02] MEDS: clonazePAM 0.5 MG TABLET PO SCH ×2 (08:24→20:07)
[2021-10-02] MEDS: Chlorhexidine Rinse 15 ML MOUTHWASH MM SCH ×2 (08:24→20:06)
[2021-10-02] MEDS: Gabapentin 300 MG CAPSULE PO SCH (08:24)
[2021-10-02] MEDS: Pantoprazole 40 MG VIAL IVP SCH (08:25)
[2021-10-02 10:52] LABS: ABG Base Excess 1 mEq/L (-2 to 3); ABG HCO3 25 mEq/L (21-27); ABG Oxygen Saturation 100 % (95-98); ABG PCO2 36 mmHg (35-45); ABG PH 7.45 pH Units (7.32-7.45); ABG PO2 170 mmHg (85-104); ABG TCO2 26 mEq/L (20-26); Blood Gas Modality ASSIST CONTROL; Blood Gas VT 420 cc
[2021-10-02] MEDS: *HR* LORazepam 2 MG/ML VIAL IVP PRN (11:12)
[2021-10-02] MEDS: DOBUTamine 1,000 MG/250 ML BAG IVC SCH ×2 (11:23→20:21)
[2021-10-02] MEDS ORDERED: Albumin Human 5% 12.5 GM/250 ML IV.SOLN IVC SCH (11:45)
[2021-10-02] MEDS: 0.9 % Sodium Chloride 1,000 ML IVC SCH (13:02)
[2021-10-02] MEDS: Norepinephrine 4 MG/254 ML IV.SOLN IVC SCH ×2 (17:54→20:11)
[2021-10-02] MEDS: Dexmedetomidine HCl 400 MCG/100 ML MLS IVC SCH (18:19)
[2021-10-02] MEDS ORDERED: Clindamycin 900 MG/50 ML 900 MG/50 ML IV.SOLN IVPB ONE (18:50)
[2021-10-02] MEDS ORDERED: *HR* Midazolam HCl 5 MG/5 ML VIAL IVP ONE ×2 (19:18→19:20)
[2021-10-03] MEDS: Artificial Tears SOLN 15 ML BOTTLE BOTH EYES SCH ×6 (00:15→20:05)
[2021-10-03] MEDS: Insulin LISPRO 300 UNITS/3 ML VIAL SUBQ SCH ×6 (00:17→21:16)
[2021-10-03] MEDS: cefTRIAXone 2,000 MG in 0.9 % Sodium Chloride 20 ML IVP SCH (00:40)
[2021-10-03] MEDS: Norepinephrine 4 MG/254 ML IV.SOLN IVC SCH ×3 (01:10→21:25)
[2021-10-03 03:59] LABS: ABG Base Excess -1 mEq/L (-2 to 3); ABG HCO3 23 mEq/L (21-27); ABG Oxygen Saturation 97 % (95-98); ABG PCO2 34 mmHg (35-45); ABG PH 7.43 pH Units (7.32-7.45); ABG PO2 83 mmHg (85-104); ABG TCO2 24 mEq/L (20-26); Blood Gas VT 420 cc
[2021-10-03 04:34] LABS: Basophils % 0.1 %; Eosinophils % 0.3 %; Hematocrit 29.2 % (35.3-44.9); Hemoglobin 8.9 g/dL (11.5-15.4); Immature Granulocytes % 0.7 % (0-4); Lymphocytes # 1.4 K/mcL (0.6-4.6); Lymphocytes % 10.2 %; Mean Corpuscular HGB Conc 30.5 g/dL (31.6-35.5); Mean Corpuscular Hemoglobin 27.5 pg (28.0-33.3); Mean Corpuscular Volume 90.1 fL (83.0-100.0); Mean Platelet Volume 11.2 fL (9.4-12.4); Monocytes # 1.3 K/mcL (0.0-1.3); Monocytes % 9.7 %; Neutrophils # 10.6 K/mcL (1.6-8.9); Nucleated Red Blood Cells 0.3 /100 WBC (0); Platelet Count 165 K/mcL (140-400); Red Blood Count 3.24 M/mcL (3.82-4.97); Red Cell Distribution Width 19.3 % (11.5-14.5); White Blood Count 13.4 K/mcL (4.3-11.1)
[2021-10-03 04:39] LABS: Albumin 4.7 g/dL (3.5-5.7); Albumin/Globulin Ratio 2.9 (1.1-2.2); Bilirubin,Total 0.8 mg/dL (0.3-1.0); Calcium 8.7 mg/dL (8.6-10.3); Globulin 1.6 g/dL (2.4-3.5); Magnesium 2.5 mg/dL (1.6-2.6); Phosphorous 2.5 mg/dL (2.7-4.5); Potassium 3.6 mEq/L (3.5-5.1); Total Protein 6.3 g/dL (6.4-8.9)
[2021-10-03] MEDS: *HR* Enoxaparin 40 MG/0.4 ML SYRINGE SQ SCH (05:01)
[2021-10-03] MEDS: Albumin 25% 25gram/100mL 25 GM/100 ML IV.SOLN IVPB SCH ×3 (05:02→17:43)
[2021-10-03] MEDS: FentaNYL (PF) 1,000 MCG/100 ML IV.SOLN IVC SCH ×3 (05:57→20:25)
[2021-10-03] MEDS: DOBUTamine 1,000 MG/250 ML BAG IVC SCH ×2 (06:04→17:33)
[2021-10-03] MEDS: clonazePAM 0.5 MG TABLET PO SCH ×2 (08:07→20:03)
[2021-10-03] MEDS: niCARdipine 20 MG/200 ML MLS IVC SCH ×5 (08:07→17:02)
[2021-10-03] MEDS: Aspirin 81 MG TAB.CHEW PO SCH (08:07)
[2021-10-03] MEDS: Chlorhexidine Rinse 15 ML MOUTHWASH MM SCH ×2 (08:08→20:03)
[2021-10-03] MEDS: Pantoprazole 40 MG VIAL IVP SCH (08:08)
[2021-10-03] MEDS: 0.9 % Sodium Chloride 1,000 ML IVC SCH (10:21)
[2021-10-03] MEDS: Ferrous Sulfate Oral Soln 300 MG/5 ML UDC GTUBE SCH ×2 (11:53→20:03)
[2021-10-03] MEDS: Docusate Oral Soln 100 MG/10 ML UDC GTUBE SCH ×2 (12:15→20:03)
[2021-10-03] MEDS: *HR* LORazepam 2 MG/ML VIAL IVP PRN (12:50)
[2021-10-03] MEDS ORDERED: *HR* Midazolam HCl 5 MG/5 ML VIAL IVP ONE ×2 (12:53→13:15)
[2021-10-03] MEDS ORDERED: *HR* Midazolam HCl 2 MG/2 ML VIAL IVP ONE (13:01)
[2021-10-03] MEDS ORDERED: 0.9 % Sodium Chloride 1,000 ML IVC SCH (17:30)
[2021-10-03 17:45] LABS: ABG Base Excess -3 mEq/L (-2 to 3); ABG HCO3 23 mEq/L (21-27); ABG Oxygen Saturation 98 % (95-98); ABG PCO2 44 mmHg (35-45); ABG PH 7.33 pH Units (7.32-7.45); ABG PO2 106 mmHg (85-104); ABG TCO2 24 mEq/L (20-26); Blood Gas VT 420 cc
[2021-10-03] MEDS: Dexmedetomidine HCl 400 MCG/100 ML MLS IVC SCH (17:53)
[2021-10-03] MEDS: Furosemide 40 MG/4 ML VIAL IVP SCH (20:04)
[2021-10-04] MEDS: Artificial Tears SOLN 15 ML BOTTLE BOTH EYES SCH ×7 (01:02→23:22)
[2021-10-04] MEDS: Albumin 25% 25gram/100mL 25 GM/100 ML IV.SOLN IVPB SCH ×5 (01:08→23:51)
[2021-10-04] MEDS: cefTRIAXone 2,000 MG in 0.9 % Sodium Chloride 20 ML IVP SCH (01:10)
[2021-10-04] MEDS: Insulin LISPRO 300 UNITS/3 ML VIAL SUBQ SCH ×7 (01:16→23:42)
[2021-10-04] MEDS: DOBUTamine 1,000 MG/250 ML BAG IVC SCH ×2 (03:24→13:54)
[2021-10-04 03:32] LABS: Basophils % 0.2 %; Eosinophils # 0.1 K/mcL (0.0-0.6); Eosinophils % 0.6 %; Hemoglobin 8.2 g/dL (11.5-15.4); Lymphocytes # 0.9 K/mcL (0.6-4.6); Lymphocytes % 6.2 %; Mean Corpuscular HGB Conc 29.3 g/dL (31.6-35.5); Mean Corpuscular Hemoglobin 27.5 pg (28.0-33.3); Mean Platelet Volume 11.4 fL (9.4-12.4); Monocytes # 1.2 K/mcL (0.0-1.3); Monocytes % 8.4 %; Neutrophils # 12.1 K/mcL (1.6-8.9); Nucleated Red Blood Cells 0.4 /100 WBC (0); Platelet Count 183 K/mcL (140-400); Red Blood Count 2.98 M/mcL (3.82-4.97); Red Cell Distribution Width 20.1 % (11.5-14.5); Segmented Neutrophils % 83.6 %; White Blood Count 14.4 K/mcL (4.3-11.1)
[2021-10-04 03:41] LABS: Albumin 4.9 g/dL (3.5-5.7); Albumin/Globulin Ratio 2.6 (1.1-2.2); Calcium 8.1 mg/dL (8.6-10.3); Globulin 1.9 g/dL (2.4-3.5); Magnesium 2.3 mg/dL (1.6-2.6); Phosphorous 3.5 mg/dL (2.7-4.5); Potassium 4.4 mEq/L (3.5-5.1); Total Protein 6.8 g/dL (6.4-8.9)
[2021-10-04] MEDS: FentaNYL (PF) 1,000 MCG/100 ML IV.SOLN IVC SCH ×3 (04:09→18:37)
[2021-10-04 04:17] LABS: ABG Base Excess -3 mEq/L (-2 to 3); ABG HCO3 24 mEq/L (21-27); ABG Oxygen Saturation 97 % (95-98); ABG PCO2 54 mmHg (35-45); ABG PH 7.26 pH Units (7.32-7.45); ABG PO2 104 mmHg (85-104); ABG TCO2 26 mEq/L (20-26); Blood Gas VT 420 cc
[2021-10-04] MEDS: *HR* Enoxaparin 40 MG/0.4 ML SYRINGE SQ SCH (04:34)
[2021-10-04] MEDS: Chlorhexidine Rinse 15 ML MOUTHWASH MM SCH ×2 (08:28→21:22)
[2021-10-04] MEDS: Ferrous Sulfate Oral Soln 300 MG/5 ML UDC GTUBE SCH ×2 (08:28→21:22)
[2021-10-04] MEDS: Aspirin 81 MG TAB.CHEW PO SCH (08:28)
[2021-10-04] MEDS: Docusate Oral Soln 100 MG/10 ML UDC GTUBE SCH ×2 (08:28→21:23)
[2021-10-04] MEDS: Furosemide 40 MG/4 ML VIAL IVP SCH ×2 (08:29→21:23)
[2021-10-04] MEDS: clonazePAM 0.5 MG TABLET PO SCH ×2 (08:29→21:23)
[2021-10-04] MEDS: Pantoprazole 40 MG VIAL IVP SCH (08:29)
[2021-10-04] MEDS: 0.9 % Sodium Chloride 1,000 ML IVC SCH (09:16)
[2021-10-04] MEDS: Dexmedetomidine HCl 400 MCG/100 ML MLS IVC SCH (16:57)
[2021-10-05] MEDS: cefTRIAXone 2,000 MG in 0.9 % Sodium Chloride 20 ML IVP SCH (00:17)
[2021-10-05] MEDS: DOBUTamine 1,000 MG/250 ML BAG IVC SCH ×2 (00:18→16:46)
[2021-10-05] MEDS: FentaNYL (PF) 1,000 MCG/100 ML IV.SOLN IVC SCH ×4 (01:58→23:16)
[2021-10-05] MEDS: Artificial Tears SOLN 15 ML BOTTLE BOTH EYES SCH ×5 (03:55→20:32)
[2021-10-05 04:47] LABS: ABG Base Excess -5 mEq/L (-2 to 3); ABG HCO3 22 mEq/L (21-27); ABG Oxygen Saturation 100 % (95-98); ABG PCO2 43 mmHg (35-45); ABG PH 7.31 pH Units (7.32-7.45); ABG PO2 238 mmHg (85-104); ABG TCO2 23 mEq/L (20-26); Blood Gas Modality AF; Blood Gas VT 400 cc
[2021-10-05 05:38] LABS: Basophils % 0.2 %; Eosinophils # 0.2 K/mcL (0.0-0.6); Hematocrit 27.8 % (35.3-44.9); Hemoglobin 8.3 g/dL (11.5-15.4); Immature Granulocytes % 1.5 % (0-4); Lymphocytes # 0.9 K/mcL (0.6-4.6); Lymphocytes % 4.9 %; Mean Corpuscular HGB Conc 29.9 g/dL (31.6-35.5); Mean Corpuscular Hemoglobin 27.6 pg (28.0-33.3); Mean Corpuscular Volume 92.4 fL (83.0-100.0); Mean Platelet Volume 11.9 fL (9.4-12.4); Monocytes # 1.4 K/mcL (0.0-1.3); Monocytes % 7.7 %; Neutrophils # 15.1 K/mcL (1.6-8.9); Nucleated Red Blood Cells 0.4 /100 WBC (0); Platelet Count 214 K/mcL (140-400); Red Blood Count 3.01 M/mcL (3.82-4.97); Red Cell Distribution Width 20.6 % (11.5-14.5); Segmented Neutrophils % 84.7 %; White Blood Count 17.9 K/mcL (4.3-11.1)
[2021-10-05 05:54] LABS: Albumin/Globulin Ratio 2.8 (1.1-2.2); Bilirubin,Total 0.9 mg/dL (0.3-1.0); Calcium 8.7 mg/dL (8.6-10.3); Globulin 1.8 g/dL (2.4-3.5); Magnesium 2.2 mg/dL (1.6-2.6); Phosphorous 4.9 mg/dL (2.7-4.5); Potassium 4.7 mEq/L (3.5-5.1); Total Protein 6.8 g/dL (6.4-8.9)
[2021-10-05] MEDS: Albumin 25% 25gram/100mL 25 GM/100 ML IV.SOLN IVPB SCH ×3 (06:01→17:17)
[2021-10-05] MEDS: *HR* Enoxaparin 30 MG/0.3 ML SYRINGE SQ SCH (06:02)
[2021-10-05] MEDS: Insulin LISPRO 300 UNITS/3 ML VIAL SUBQ SCH ×5 (06:04→20:33)
[2021-10-05] MEDS: 0.9 % Sodium Chloride 1,000 ML IVC SCH ×2 (07:33→11:51)
[2021-10-05] MEDS: Ferrous Sulfate Oral Soln 300 MG/5 ML UDC GTUBE SCH ×2 (07:44→20:31)
[2021-10-05] MEDS: Docusate Oral Soln 100 MG/10 ML UDC GTUBE SCH ×2 (07:44→20:31)
[2021-10-05] MEDS: Chlorhexidine Rinse 15 ML MOUTHWASH MM SCH ×2 (07:44→20:32)
[2021-10-05] MEDS: Pantoprazole 40 MG VIAL IVP SCH (07:44)
[2021-10-05] MEDS: Aspirin 81 MG TAB.CHEW PO SCH (07:45)
[2021-10-05] MEDS: clonazePAM 0.5 MG TABLET PO SCH ×2 (07:45→20:32)
[2021-10-05] MEDS: Furosemide 40 MG/4 ML VIAL IVP SCH ×2 (07:45→20:32)
[2021-10-05] MEDS: niCARdipine 20 MG/200 ML MLS IVC SCH ×5 (07:46→19:37)
[2021-10-05] MEDS ORDERED: Lidocaine/EPI 1:100k 1% 20 ML VIAL INFILT ONE (10:39)
[2021-10-05 16:02] LABS: Sodium, Urine 31.1 mEq/L
[2021-10-05] MEDS: Dexmedetomidine HCl 400 MCG/100 ML MLS IVC SCH (17:24)
[2021-10-05] MEDS ORDERED: QUEtiapine Fumarate 25 MG TABLET PO SCH (21:00)
[2021-10-06] MEDS: Albumin 25% 25gram/100mL 25 GM/100 ML IV.SOLN IVPB SCH ×2 (00:01→05:10)
[2021-10-06] MEDS: 0.9 % Sodium Chloride 1,000 ML IVC SCH (00:04)
[2021-10-06] MEDS: Artificial Tears SOLN 15 ML BOTTLE BOTH EYES SCH ×3 (00:04→08:50)
[2021-10-06] MEDS: Insulin LISPRO 300 UNITS/3 ML VIAL SUBQ SCH ×3 (00:05→08:51)
[2021-10-06] MEDS: niCARdipine 20 MG/200 ML MLS IVC SCH ×3 (00:05→08:51)
[2021-10-06] MEDS: cefTRIAXone 2,000 MG in 0.9 % Sodium Chloride 20 ML IVP SCH (00:06)
[2021-10-06] MEDS ORDERED: 0.9 % Sodium Chloride 500 ML ONE (03:25)
[2021-10-06 04:01] LABS: Basophils % 0.3 %; Eosinophils # 0.3 K/mcL (0.0-0.6); Eosinophils % 1.6 %; Hematocrit 26.3 % (35.3-44.9); Hemoglobin 7.7 g/dL (11.5-15.4); Immature Granulocytes % 1.8 % (0-4); Lymphocytes # 0.8 K/mcL (0.6-4.6); Lymphocytes % 5.2 %; Mean Corpuscular HGB Conc 29.3 g/dL (31.6-35.5); Mean Corpuscular Hemoglobin 27.5 pg (28.0-33.3); Mean Corpuscular Volume 93.9 fL (83.0-100.0); Mean Platelet Volume 12.1 fL (9.4-12.4); Monocytes # 1.4 K/mcL (0.0-1.3); Neutrophils # 12.9 K/mcL (1.6-8.9); Nucleated Red Blood Cells 0.6 /100 WBC (0); Platelet Count 247 K/mcL (140-400); Red Cell Distribution Width 21.2 % (11.5-14.5); Segmented Neutrophils % 82.1 %; White Blood Count 15.7 K/mcL (4.3-11.1)
[2021-10-06 04:04] LABS: VBG Ionized Calcium 1.11 mmol/L (1.15-1.35)
[2021-10-06 04:37] LABS: Albumin 5.1 g/dL (3.5-5.7); Albumin/Globulin Ratio 2.4 (1.1-2.2); Bilirubin,Direct 0.4 mg/dL (0.0-0.2); Bilirubin,Indirect 0.4 mg/dL (0.0-1.0); Bilirubin,Total 0.8 mg/dL (0.3-1.0); Calcium 8.9 mg/dL (8.6-10.3); Globulin 2.1 g/dL (2.4-3.5); Magnesium 2.2 mg/dL (1.6-2.6); Phosphorous 6.6 mg/dL (2.7-4.5); Potassium 5.2 mEq/L (3.5-5.1); Total Protein 7.2 g/dL (6.4-8.9)
[2021-10-06 05:06] LABS: ABG Base Excess -9 mEq/L (-2 to 3); ABG HCO3 18 mEq/L (21-27); ABG Oxygen Saturation 97 % (95-98); ABG PCO2 42 mmHg (35-45); ABG PH 7.24 pH Units (7.32-7.45); ABG PO2 104 mmHg (85-104); ABG TCO2 19 mEq/L (20-26); Blood Gas Modality ASSIST CONTROL; Blood Gas VT 400 cc
[2021-10-06] MEDS: *HR* Enoxaparin 30 MG/0.3 ML SYRINGE SQ SCH (05:07)
[2021-10-06] MEDS: FentaNYL (PF) 1,000 MCG/100 ML IV.SOLN IVC SCH (05:54)
[2021-10-06] MEDS ORDERED: Calcium Gluconate 1gm/50mL 1 GM/50 ML BAG IVPB ONE (07:19)
[2021-10-06] MEDS ORDERED: *HR* Dextrose 50 % in Water (Syg) 50 ML SYRINGE IVP ONE (07:19)
[2021-10-06] MEDS ORDERED: Insulin Human Regular 10 UNIT in 0.9 % Sodium Chloride 10 ML IV ONE (07:19)
[2021-10-06 07:46] VITALS: O2SAT 97
[2021-10-06 08:09] VITALS: TEMP 98.2
[2021-10-06] MEDS: Furosemide 40 MG/4 ML VIAL IVP SCH (08:45)
[2021-10-06] MEDS: Chlorhexidine Rinse 15 ML MOUTHWASH MM SCH (08:45)
[2021-10-06] MEDS: Pantoprazole 40 MG VIAL IVP SCH (08:45)
[2021-10-06] MEDS: Docusate Oral Soln 100 MG/10 ML UDC GTUBE SCH (08:45)
[2021-10-06] MEDS: Aspirin 81 MG TAB.CHEW PO SCH (08:47)
[2021-10-06] MEDS: Norepinephrine 4 MG/254 ML IV.SOLN IVC SCH (08:51)
[2021-10-06] MEDS ORDERED: Amiodarone Premix 150 MG/100 ML BAG IVPB ONE ×2 (09:53→09:55)
[2021-10-06] MEDS ORDERED: Sodium Bicarbonate 150 MEQ in Water for inj. (sterile) 1,000 ML IVC SCH (10:00)
[2021-10-06] MEDS ORDERED: Norepinephrine 4 MG/254 ML IV.SOLN IVC SCH (10:00)
[2021-10-06 10:01] LABS: ABG Base Excess -9 mEq/L (-2 to 3); ABG HCO3 20 mEq/L (21-27); ABG Oxygen Saturation 93 % (95-98); ABG PCO2 56 mmHg (35-45); ABG PH 7.16 pH Units (7.32-7.45); ABG PO2 85 mmHg (85-104); ABG TCO2 21 mEq/L (20-26); Blood Gas Modality ASSIST CONTROL; Blood Gas VT 450 cc
[2021-10-06] MEDS ORDERED: *HR* Heparin 5,000 UNIT/ML VIAL IVP PRN (10:02)
[2021-10-06] MEDS ORDERED: 0.9 % Sodium Chloride 1,000 ML PRIME ONE ×2 (10:02)
[2021-10-06] MEDS ORDERED: *HR* Alteplase (Cathflo) 2 MG VIAL IVP PRN (10:02)
[2021-10-06] MEDS ORDERED: Perflutren Lipid Microsphere 1.3 ML in 0.9 % Sodium Chloride 8.7 ML IVP PRN (10:05)
[2021-10-06] MEDS ORDERED: Amiodarone Premix 360 MG/200 ML BAG IVC ONE ×2 (10:09)
[2021-10-06 10:11] LABS: VBG Ionized Calcium 1.16 mmol/L (1.15-1.35)
[2021-10-06 10:14] LABS: Hematocrit 25.6 % (35.3-44.9); Hemoglobin 7.6 g/dL (11.5-15.4); Mean Corpuscular HGB Conc 29.7 g/dL (31.6-35.5); Mean Corpuscular Hemoglobin 28.3 pg (28.0-33.3); Mean Corpuscular Volume 95.2 fL (83.0-100.0); Nucleated Red Blood Cells 1.1 /100 WBC (0); Platelet Count 200 K/mcL (140-400); Red Blood Count 2.69 M/mcL (3.82-4.97); Red Cell Distribution Width 21.4 % (11.5-14.5); White Blood Count 16.8 K/mcL (4.3-11.1)
[2021-10-06] MEDS ORDERED: PrismaSATE BGK 4/2.5 5,000 ML CRRT SCH ×2 (10:15)
[2021-10-06] MEDS ORDERED: Phenylephrine 20 MG in 0.9 % Sodium Chloride 250 ML IVC SCH (10:15)
[2021-10-06] MEDS ORDERED: 0.9 % Sodium Chloride 1,000 ML PRIME SCH (10:15)
[2021-10-06 10:35] LABS: Calcium 8.6 mg/dL (8.6-10.3); Magnesium 2.2 mg/dL (1.6-2.6); Potassium 5.2 mEq/L (3.5-5.1)
[2021-10-06 10:56] LABS: Anisocytosis 2+ (Not Present); Hypochromasia Present (Not Present); Lymphocytes # 1.7 K/mcL (0.6-4.6); Monocytes # 0.3 K/mcL (0.0-1.3); Neutrophils # 13.6 K/mcL (1.6-8.9); Platelet Estimate Normal (Normal); Poikilocytosis 1+ (Not Present); Polychromasia 1+ (Not Present)
[2021-10-06 11:27] VITALS: BP 137/52; PULSE 72
[2021-10-06] MEDS ORDERED: Norepinephrine 4 MG/254 ML in 0.9% Sodium Chloride IVC ONE (14:39)
[2021-10-06] MEDS ORDERED: *HR* Magnesium Sulfate 2 GM/50 ML PIGGYBACK IVPB ONE (14:39)
[2021-10-06] MEDS ORDERED: *HR* EPINEPHrine 1 MG/10 ML SYRINGE IVP ONE (14:39)
[2021-10-06] MEDS ORDERED: Amiodarone Premix 360 MG/200 ML BAG IVC SCH (16:09)
== END 2021-10-06 14:40 | disposition expired | DRG 853 ==
LOC: EMEROOARM 23:23 → 2ANU 23:23 → SUATTDRO 09-24 03:31 → 2ANU 09-24 05:00 → ICNU 09-29 14:16
PROVIDERS: ADMIT Internal Medicine; ATTEND Internal Medicine